=== PATIENT | female | born 2000 | race Caucasian/White ===

== ENCOUNTER 2023-12-08 06:03 | Emergency (ER) | payer BC, SELFPAY ==
[2023-12-08 06:06] VITALS: BP 119/83
--- NOTE | 2023-12-08 07:05 | ED.GENMED ---
History of Present Illness
General
Chief Complaint: Back Pain
Source: patient
Time Seen by Provider: 12/08/23 06:55
History of Present Illness
History of Present Illness:
23yoF with a history of depression presenting with her mother for evaluation of back pain. Patient started having nausea and vomiting around 5 PM yesterday evening. She reports vomiting every 15 minutes at symptom onset. Her mother gave her
Zofran with some improvement. She then had about 5-6 episodes of diarrhea. Patient reports abdominal pain primarily in the periumbilical region. She also developed lower back pain overnight and was unable to sleep last night due to her symptoms.
She had a fever of 100.7 and she decided to come to the ED for evaluation. She initially thought she had a stomach bug as she works at a childcare center. She denies any vaginal bleeding, vaginal discharge, dysuria, cough, chest pain, shortness of
breath. She denies any recent travel, recent antibiotics, history of IV drug use. No previous abdominal surgeries. Last menstrual period 2 weeks ago.
Phy Exam
General Physical Exam
General Presentation: well appearing and no apparent distress
General age: appears stated age
General Skin: warm and dry
General Habitus: normal
General Mental: alert
Cardiovascular Exam
Cardiovascular Exam: regular rate/rhythm
Pulmonary Exam
Pulmonary Exam: lungs clear, no respiratory distress, no crackles and no wheezing
Gastrointestinal Exam
Gastrointestinal Exam: soft, non distended, no cva tenderness and tender (+Suprapubic and periumbilical tenderness. No guarding or rebound tenderness. )
[place] Coma Scale
Eye Opening: Spontaneous
Verbal Response: Oriented
Motor Response: Obeys Commands
GCS Total Score: 15
Musculoskeletal Exam
Musculoskeletal Exam: other (No reproducible tenderness in lumbar spine. No skin changes.)
Skin Exam
Skin Exam: normal color and warm/dry
Psychiatric Exam
Psychiatric Exam: normal mood/affect
Course
Orders/Labs/Results
Orders:
Orders
12/08/23 07:04
CT Abd/pel W Iv And Oral Contr Urgent
Comment:
Reason For Exam: Fever, periumbilical pain, lower back pain
0.9% Sodium Chloride 1000 ml [Nss] 1,000 ml IV BOLUS
Iohexol [Omnipaque] See Protocol PO NOW STA
Ketorolac [Toradol] 15 mg IV NOW STA
Ondansetron Injectable [Zofran] 4 mg IV NOW STA
Test Result ONCE
12/08/23 07:26
COVID-19 Antigen Urgent
Source: Nasal Swab
Complete Blood Count/With Diff Urgent
Comprehensive Metabolic Panel Urgent
HCG, Serum Qualitative Screen Urgent
Lipase Urgent
Urinalysis Reflex To Culture Urgent
Date Specimen was Collected: 12/08/23
Time Specimen was Collected: 07:09
Urine Microscopic Reflex Cult Urgent
Influenza A+B Rapid Molecular Urgent
JOANNE Source: Nasal Swab
Specimen Description:
Urine Culture Urgent
JOANNE Source: U
Specimen Description:
Date Specimen was Collected: 12/08/23
Time Specimen was Collected: 07:09
12/08/23 09:01
Acetaminophen 1000MG/100Ml [Ofirmev] 1,000 mg in 100 ml IV ONCE
Acetaminophen IV Indication:: ED Narcotic Naive Pt-ONCE
Ketorolac [Toradol] 15 mg IV NOW STA
Abnormal Lab Results
12/08/23
07:26
Absolute Neuts (auto) 7.6 H 10^3/uL
(1.4-6.5)
Absolute Lymphs (auto) 0.3 L 10^3/uL
(1.2-3.4)
Neutrophils % 90.7 H %
(42.2-75.2)
Lymphocytes % 4.1 L %
(20.5-51.1)
Glucose 108 H mg/dl
(70-99)
Urine Ketones 3+ A
(Negative)
Urine Bilirubin 1+ A
(Negative)
Leukocyte Esterase Rfl 1+ A
(Negative)
Urine WBC (Reflex) 16-20 A /HPF
(0-5)
Urine Bacteria (Reflex) Many A
(Negative)
12/08/23 07:26
12/08/23 07:26
Vital Signs
Initial and Last Documented VS:
Initial Vital Signs
Temp Pulse Resp BP Pulse Ox
100.7 F H 98 18 119/83 97
12/08/23 06:06 12/08/23 06:06 12/08/23 06:06 12/08/23 06:06 12/08/23 06:06
Last Documented Vital Signs
Temp Pulse Resp BP Pulse Ox
98.7 F 74 16 110/74 98
12/08/23 10:29 12/08/23 10:18 12/08/23 10:18 12/08/23 10:29 12/08/23 10:18
MDM/Problems Addressed
Differential Diagnosis Includes:
23yoF here with vomiting and diarrhea x 1 day. Also having back and abdominal pain. Temperature 100.7 on arrival. Remainder of vitals stable. She is well appearing in no distress. No signs of peritonitis on abdominal exam. Differential diagnosis
includes but is not limited to: appendicitis, colitis, gastroenteritis, pyelonephritis, viral illness
Initial ED plan: Check abdominal labs, UA, stool culture, COVID/flu testing, and CT abdomen. IV Toradol, Zofran, and fluid bolus for symptoms.
*Critical Care Note
Total Time (30-74mins, 75-104mins- exclusive of procedures): Not Applicable
Update Note
Update Note:
Labs unremarkable including normal white count, renal function, LFTs. HCG negative. COVID/flu negative. UA with many bacteria although epithelial cells are present suggesting contaminated sample. She has no urinary symptoms. CT abdomen is negative
for acute findings. No perinephric stranding or inflammation around bladder. No episodes of vomiting or diarrhea during ED stay. No indication for admission. Suspect viral gastroenteritis. Will hold on abx pending urine culture given lack of urinary
symptoms/CT findings. Prescription provided for Zofran and supportive care discussed. Advised f/u with PCP and ED return precautions discussed. She was discharged in stable condition.
ED Attending Note
-
Portions of this chart may have been created with voice recognition software.� Occasional wrong word or��sound alike� substitutions may have occurred due to the inherent limitations of voice recognition software.
Discharge Plan
Departure
Patient Disposition: Home (Routine Discharge)
Date of Disposition: 12/08/23
Time of Disposition: 10:21
Patient with high blood pressure during this ER visit?: No
Discharge Problem:
Abdominal pain, vomiting, and diarrhea, Low back pain
Instructions: Nausea and vomiting in adults
Prescriptions:
New
ondansetron 4 mg tablet,disintegrating
4 mg PO Q6H PRN (Reason: nausea and vomiting) Qty: 20 0RF
Referrals:
Pratik Stanley, DO [Family Provider] -
Activity Restrictions/Additional Instructions:
Take Zofran as needed for nausea. Drink plenty of fluids and rest. Take Tylenol 650mg and ibuprofen 600mg every 6 hours as needed for pain/fevers.
Please follow-up with your family doctor. Return to the ER with any new or worsening symptoms.
Interventions
Interventions:
*Risk Screen - Suicide Last Done: 12/08/23 08:30
*General Assessment Last Done: 12/08/23 06:06
*Neglect/Abuse Screening Last Done: 12/08/23 08:30
ED- Fall Risk Assessment Last Done: 12/08/23 09:12
*ED COVID-19 Vaccine History Last Done: 12/08/23 06:06
*Nursing Disposition Last Done: 12/08/23 10:29
ED-Musculoskeletal Assessment Last Done: 12/08/23 08:30
Discharge Date and Time
Discharge Date/Time: 12/08/23 10:36
Print Language: POLISH
[2023-12-08] MEDS: OMNIPAQUE 50 ML PO (07:22)
[2023-12-08] MEDS: NSS 1000 IV (07:22)
[2023-12-08] MEDS: TORADOL 15 MG IV ×2 (07:23→09:06)
[2023-12-08] MEDS: ZOFRAN 4 MG IV (07:23)
[2023-12-08 07:37] LABS: % Basophils 0.2 % (0-2); % Eosinophils 0.1 % (0-6); % Immature Granulocytes 0.2 % (0-0.5); % Lymphocytes 4.1 % (20.5-51.1); % Monocytes 4.7 % (1.7-9.3); % Neutrophils 90.7 % (42.2-75.2); Absolute Lymphocytes 0.3 10^3/uL (1.2-3.4); Absolute Monocytes 0.4 10^3/uL (0.1-0.6); Absolute Neutrophils 7.6 10^3/uL (1.4-6.5); Hematocrit 40.3 % (37.0-47.0); Hemoglobin 13.9 g/dL (12.0-16.0); Mean Corp Hgb Conc. 34.5 g/dL (33.0-37.0); Mean Corpuscular Hgb 29.1 pg (27.0-31.0); Mean Corpuscular Volume 84.5 fL (81.0-99.0); Mean Platelet Volume 9.2 fL (7.4-10.4); Nucleated Red Blood Cells % 0 %; Platelet Count 244 10^3/uL (130-400); Red Blood Cell Count 4.77 10^6/uL (4.20-5.40); Red Cell Dist. Width 12.8 % (11.5-14.5); White Blood Cell Count 8.4 10^3/uL (4.8-10.8)
[2023-12-08 07:41] LABS: Urine Albumin Trace (Neg - Trace); Urine Bilirubin 1+ (Negative); Urine Character Clear (Clear); Urine Color Amber; Urine Glucose Negative (Negative); Urine Ketone 3+ (Negative); Urine Leukocyte 1+ (Negative); Urine Nitrite Negative (Negative); Urine Occult Blood Negative (Negative); Urine Specific Gravity 1.025 (<1.030); Urine Urobilinogen Negative (Neg - 1+)
[2023-12-08 07:52] LABS: HCG, Serum Qualitative Screen Negative
[2023-12-08 07:54] LABS: ALT (SGPT) 19 U/L (0-35); AST (SGOT) 27 U/L (14-36); Albumin 4.5 g/dl (3.5-5.0); Alkaline Phosphatase 54 U/L (38-126); Blood Urea Nitrogen 11 mg/dl (7-17); Calcium 9.6 mg/dl (8.4-10.2); Carbon Dioxide 24 mmol/L (22-30); Chloride 101 mmol/L (98-107); Glucose 108 mg/dl (70-99); Lipase 77 U/L (23-300); Potassium 3.8 mmol/L (3.5-5.1); Sodium 139 mmol/L (135-145); Total Bilirubin 1.3 mg/dl (0.2-1.3); eGFR > 60.00
[2023-12-08 07:57] LABS: COVID-19 Antigen Negative (Negative); Urine Bacteria Many (Negative); Urine Red Blood Cell None Seen /HPF (0-2); Urine Squamous Cell 16-20 /LPF (Few); Urine White Cell 16-20 /HPF (0-5)
[2023-12-08] MEDS: OFIRMEV 100 IV (09:05)
[2023-12-08 09:10] VITALS: BP 111/71
[2023-12-08 09:48] VITALS: BP 108/65
[2023-12-08 10:18] VITALS: BP 102/47
[2023-12-08 10:29] VITALS: BP 110/74
== END 2023-12-08 10:36 | disposition home or self-care (01) ==
LOC: EMR 06:03
PROVIDERS: Physician Assistant; EMERGENCY PHYSICIAN Emergency Medicine; FAMILY PHYSICIAN Pediatrics
DX: M54.50 Low back pain, unspecified (principal); R10.33 Periumbilical pain; R50.9 Fever, unspecified; R19.7 Diarrhea, unspecified; R11.2 Nausea with vomiting, unspecified; Z11.52 Encounter for screening for COVID-19; F32.A Depression, unspecified; Z88.1 Allergy status to other antibiotic agents
CPT/HCPCS: 99285; 96375 ×2; 96361; 96374; 96376; 74177; 80053; 81003; 81015; 83690; 84703; 85025; 87086; 87502; 87811; Q9967